=== PATIENT | male | born 1995 | race Caucasian/White ===

== ENCOUNTER 2017-07-16 08:55 | Emergency (ER) | payer BC, OTHER ==
[~2017-07-16] VITALS: Ht 193 cm; Wt 105.7 kg
[2017-07-16 09:14] LABS: URINE BLOOD 3+ (Negative); URINE CLARITY CLOUDY; URINE GLUCOSE-RANDOM* NEGATIVE (Negative); URINE KETONES NEGATIVE (Negative); URINE LEUKOCYTES-REFLEX NEGATIVE (Negative); URINE NITRITE-REFLEX NEGATIVE (Negative); URINE PROTEIN (DIPSTICK) 2+ (Negative); URINE SPECIFIC GRAVITY >= 1.030 (1.005-1.035); URINE UROBILINOGEN 0.2 E.U./dl (0.2-1.0)
[2017-07-16 09:24] LABS: ICTOTEST (BILI CONFIRMATORY) Negative (Negative); URINE BILIRUBIN NEGATIVE (Negative); URINE COLOR AMBER
[2017-07-16 09:25] LABS: CASTS None Seen /LPF (None Seen); CRYSTALS None Seen /LPF (None Seen); SQUAMOUS 0-3 Few /LPF (0-3); URINE RBC >20 Many /HPF (0-2)
[2017-07-16 09:26] LABS: BACTERIA-REFLEX 1-9 Few /HPF (None Seen); URINE WBC-REFLEX None Seen /HPF (0-5); YEAST-REFLEX Present (None Seen)
[2017-07-16 09:47] LABS: ABSOLUTE NEUTROPHILS 6.6 thou/uL (1.4-8.2); BASOPHILS 0.1 % (0.0-2.0); CALCIUM 9.7 mg/dL (8.5-10.1); EOSINOPHILS 0.5 % (0.0-3.0); HEMATOCRIT 42.5 % (42.0-52.0); HEMOGLOBIN 14.9 gm/dL (14.0-18.0); LYMPHOCYTES 14.7 % (24.0-44.0); MCH 32.3 pg (26.0-34.0); MCHC 35.1 g/dL (28.0-37.0); MCV 92.1 fL (80.0-100.0); MONOCYTES 7.3 % (1.0-8.0); PLATELET COUNT 185 thou/uL (150-400); POLYS 77.4 % (36.0-66.0); POTASSIUM 3.4 mmol/L (3.5-5.1); RBC 4.62 mil/uL (4.50-6.00); RDW 12.7 % (10.5-14.5); WBC 8.6 thou/uL (4.0-11.0)
[2017-07-16 09:53] LABS: ALBUMIN 4.3 g/dL (3.4-5.0); TOTAL BILIRUBIN 0.5 mg/dL (<0.1-1.0)
[2017-07-16] MEDS ORDERED: HYDROCODONE-AP1 EAC6 PO (10:22)
[2017-07-16] MEDS ORDERED: KEFLEX500 M1 PO (10:22)
[2017-07-16] MEDS ORDERED: FLOMAX0.4 MG PO (10:22)
[2017-07-16] MEDS ORDERED: IBUPROFEN 600600 M1 PO (10:22)
[2017-07-16] MEDS ORDERED: ZOFRAN ODT4 M1 PO (10:22)
== END 2017-07-16 10:50 | disposition home or self-care (01) ==
LOC: ER 08:55
PROVIDERS: Physician Assistant
DX: N20.0 Calculus of kidney (principal); N13.30 Unspecified hydronephrosis